=== PATIENT | female | born 1985 | race Caucasian/White ===

== ENCOUNTER 2021-07-05 10:55 | Outpatient (CLI) | payer BC ==
[2021-07-06 00:15] LABS: SARS-CoV-2 PCR by NAA Not Detected (NotDetected)
== END 2021-07-05 10:56 | disposition home or self-care (01) ==
LOC: CSHLAB 10:55
PROVIDERS: ATTEND Obstetrics & Gynecology
DX: Z20.822 Contact with and (suspected) exposure to COVID-19 (principal)
CPT/HCPCS: U0003; U0005

== ENCOUNTER 2021-07-08 05:41 | Inpatient (IN) | payer BC ==
[2021-07-08 06:08] VITALS: BMI 26.5
[2021-07-08] MEDS ORDERED: NS w/ Oxytocin 30 units 500 ML ONE (07:33)
[2021-07-08] MEDS ORDERED: Penicillin G Potassium 5 MILL.UNITS VIAL ONE (07:34)
[2021-07-08] MEDS ORDERED: Acetaminophen 500 MG TAB PO PRN (08:50)
[2021-07-08] MEDS ORDERED: Ondansetron PF 4 MG/2 ML Vial IVP PRN ×2 (08:50→10:24)
[2021-07-08] MEDS ORDERED: hydrALAZINE 20 MG/ML VIAL SLOW IVP PRN ×2 (08:50→18:32)
[2021-07-08] MEDS ORDERED: Promethazine HCl 25 MG/ML VIAL IM PRN ×2 (08:50→10:24)
[2021-07-08] MEDS ORDERED: Lidocaine 1% (PF) 30 ML VIAL SC PRN (08:50)
[2021-07-08] MEDS ORDERED: Lactated Ringer's 1,000 ML IV SCH (09:00)
[2021-07-08] MEDS ORDERED: NS w/ Oxytocin 30 units 500 ML IV SCH ×3 (09:00→18:32)
[2021-07-08] MEDS ORDERED: Penicillin G Potassium 5 MILL.UNITS in Sodium Chloride 0.9% 100 ML IVPB SCH (09:00)
[2021-07-08 09:46] LABS: Hemoglobin 11.1 g/dL (12.0-15.5); Mean Corpuscular HGB CONC 33.4 g/dL (32.0-36.0); Mean Corpuscular Hemoglobin 30.4 pg (27.0-33.0); Mean Platelet Volume 12.1 fl (7.4-10.4); Platelet Count 186 10x3/uL (150-450); RBC Distribution Width 13.2 % (11.5-14.5); Red Blood Cell (RBC) Count 3.65 10x6/uL (3.90-5.03); White Blood Cell (WBC) Count 8.6 10x3/uL (3.5-10.5)
[2021-07-08] MEDS ORDERED: Fentanyl 2 mcg/Bup 0.1% Cadd 100 ML ONE (09:46)
[2021-07-08 10:12] LABS: HIV (1/2) Antibody/Antigen Non-Reactive (NonReactive); HIV 1/2 INDEX 0.08 S/CO (<1.00); Hep B Surf Ag Non-Reactive S/CO (NonReactive); Syphilis Antibody Nonreactive (Nonreactive); Syphilis Antibody Index 0.06 S/CO (<1.00 Non-Reactive)
[2021-07-08] MEDS ORDERED: Hydrocerin (Eucerin) Cream 120 gm Jar TOP PRN (10:24)
[2021-07-08] MEDS ORDERED: Lactated Ringer's 500 ML IV PRN (10:24)
[2021-07-08] MEDS ORDERED: ePHEDrine Sulfate 50 MG/10 ML VIAL SLOW IVP PRN (10:24)
[2021-07-08] MEDS ORDERED: diphenhydrAMINE 50 MG/ML VIAL IVP PRN (10:24)
[2021-07-08] MEDS ORDERED: Acetaminophen 325 MG TAB PO PRN (10:24)
[2021-07-08] MEDS ORDERED: Naloxone HCl 0.4 mg/ml Vial IVP PRN ×2 (10:24)
[2021-07-08] MEDS ORDERED: Fentanyl 2 mcg/Bupivacaine 0.1% Cassette 100 ML EPIDURAL SCH (10:30)
[2021-07-08] MEDS ORDERED: Communication Order-Pharmacy FS SCH (10:30)
[2021-07-08 10:34] LABS: HBSAg Index 0.18 S/CO (0-0.99)
[2021-07-08] MEDS ORDERED: Penicillin G 2.5 MILL.units 2.5 MILL.UNITS in Premix Bag 1 BAG IVPB SCH (13:00)
[2021-07-08] MEDS ORDERED: Bisacodyl 10 MG SUPP PR PRN (18:32)
[2021-07-08] MEDS ORDERED: Benzocaine-Menthol 82.5 ML CAN TOP PRN (18:32)
[2021-07-08] MEDS ORDERED: Milk Of Magnesia 30 ML UDCUP PO PRN (18:32)
[2021-07-08] MEDS ORDERED: HYDROcodone/Acetaminophen 5/325 mg Tablet PO PRN (18:32)
[2021-07-08] MEDS ORDERED: Acetaminophen/Codeine 30-300mg Tablet PO PRN (18:32)
[2021-07-08] MEDS ORDERED: Boostrix 0.5 ML (Tdap) VIAL IM ONE (18:32)
[2021-07-08] MEDS ORDERED: Ondansetron PF 4 MG/2 ML Vial IVPB PRN (18:32)
[2021-07-08] MEDS ORDERED: Lanolin Ointment 7 GM TUBE TOP PRN (18:32)
[2021-07-08] MEDS ORDERED: Ferrous Sulfate 325 MG TAB PO SCH (21:00)
[2021-07-08] MEDS: Docusate Calcium (SURFAK) 240 MG CAP PO SCH (21:31)
[2021-07-08] MEDS: Ibuprofen 800 MG TAB PO SCH (21:31)
[2021-07-09] MEDS: Docusate Calcium (SURFAK) 240 MG CAP PO SCH ×2 (02:44→08:28)
[2021-07-09] MEDS: Ibuprofen 800 MG TAB PO SCH ×2 (02:44→14:20)
[2021-07-09 05:20] LABS: Hemoglobin 11.1 g/dL (12.0-15.5); Mean Corpuscular HGB CONC 33.2 g/dL (32.0-36.0); Mean Corpuscular Hemoglobin 30.6 pg (27.0-33.0); Platelet Count 186 10x3/uL (150-450); RBC Distribution Width 13.4 % (11.5-14.5); Red Blood Cell (RBC) Count 3.63 10x6/uL (3.90-5.03)
[2021-07-09] MEDS: Ferrous Sulfate 325 MG TAB PO SCH ×2 (08:27→17:18)
[2021-07-09] MEDS ORDERED: Prenatal Vitamin 1 TAB PO SCH (09:00)
[2021-07-09 11:32] VITALS: BP 108/62; TEMP 98
[2021-07-12 13:30] LABS: HBSAB Concentration 109.92 mIU/mL; Hep B Surf AB Reactive (NonReactive)
== END 2021-07-09 17:25 | disposition home or self-care (01) | DRG 807 ==
LOC: CSHLD 05:41 → CSHPP 18:25
PROVIDERS: ADMIT Obstetrics & Gynecology; ATTEND Obstetrics & Gynecology
PROC: 10E0XZZ Delivery of Products of Conception, External Approach (ICD-10-PCS; principal; 2021-07-08)
PROC: 10907ZC Drainage of Amniotic Fluid, Therapeutic from Products of Conception, Via Natural or Artificial Opening (ICD-10-PCS; 2021-07-08)
PROC: 3E033VJ Introduction of Other Hormone into Peripheral Vein, Percutaneous Approach (ICD-10-PCS; 2021-07-08)
DX: O80 Encounter for full-term uncomplicated delivery (principal); Z37.0 Single live birth; Z3A.39 39 weeks gestation of pregnancy
CPT/HCPCS: 36415; 51702; 85027; 86706; 86780; 86850; 86900; 86901; 87340; 87389; J2540; J3490; J7120; U0003; U0005

== ENCOUNTER 2023-01-05 06:15 | Inpatient (IN) | payer BC ==
[2023-01-05] MEDS ORDERED: Penicillin G Potassium 5 MILL.UNITS VIAL ONE (07:04)
[2023-01-05] MEDS ORDERED: hydrALAZINE 20 MG/ML VIAL SLOW IVP PRN (07:22)
[2023-01-05] MEDS ORDERED: Ondansetron PF 4 MG/2 ML Vial IVP PRN ×2 (07:22→10:34)
[2023-01-05] MEDS ORDERED: Lidocaine 1% (PF) 30 ML VIAL SC PRN (07:22)
[2023-01-05] MEDS ORDERED: HYDROcodone/Acetaminophen 5/325 mg Tablet PO PRN ×2 (07:22)
[2023-01-05] MEDS ORDERED: Ibuprofen 800 MG TAB PO PRN (07:22)
[2023-01-05] MEDS ORDERED: Promethazine HCl 25 MG/ML VIAL IM PRN ×2 (07:22→10:34)
[2023-01-05] MEDS ORDERED: Penicillin G Potassium 5 MILL.UNITS in Sodium Chloride 0.9% 100 ML IVPB SCH (07:30)
[2023-01-05] MEDS ORDERED: NS w/ Oxytocin 30 units 500 ML IV SCH ×2 (07:30)
[2023-01-05 07:50] VITALS: BMI 25.7
[2023-01-05] MEDS ORDERED: Bupivacaine 0.25% HCL 30 ML VIAL ONE (08:00)
[2023-01-05] MEDS: Lactated Ringer's 1,000 ML IV SCH ×3 (08:15→19:08)
[2023-01-05 08:19] LABS: Hemoglobin 11.7 g/dL (12.0-15.5); Mean Corpuscular HGB CONC 33.1 g/dL (32.0-36.0); Mean Corpuscular Volume 87.8 fl (81.6-98.3); Mean Platelet Volume 12.1 fl (7.4-10.4); Platelet Count 241 10x3/uL (150-450); RBC Distribution Width 13.1 % (11.5-14.5); Red Blood Cell (RBC) Count 4.03 10x6/uL (3.90-5.03)
[2023-01-05 08:47] LABS: HBSAg Index 0.13 S/CO (0-0.99); Hep B Surf Ag - L&D Non-Reactive S/CO (NonReactive)
[2023-01-05 08:48] LABS: Syphilis Antibody Nonreactive (Nonreactive); Syphilis Antibody Index 0.04 S/CO (<1.00 Non-Reactive)
[2023-01-05] MEDS ORDERED: fentaNYL/Ropivacaine Epidural 100 ML ONE (10:08)
[2023-01-05] MEDS ORDERED: ePHEDrine Sulfate 50 MG/10 ML VIAL SLOW IVP PRN (10:34)
[2023-01-05] MEDS ORDERED: Moisturizing Cream (Eucerin) 113 GM JAR TOP PRN (10:34)
[2023-01-05] MEDS ORDERED: Naloxone HCl 0.4 mg/ml Vial IVP PRN ×2 (10:34)
[2023-01-05] MEDS ORDERED: Acetaminophen 325 MG TAB PO PRN (10:34)
[2023-01-05] MEDS ORDERED: diphenhydrAMINE 50 MG/ML VIAL IVP PRN (10:34)
[2023-01-05] MEDS ORDERED: Lactated Ringer's 500 ML IV PRN (10:34)
[2023-01-05] MEDS ORDERED: Communication Order-Pharmacy FS SCH (10:45)
[2023-01-05] MEDS: Penicillin G 2.5 MILL.units 2.5 MILL.UNITS in Premix Bag 1 BAG IVPB SCH ×3 (11:05→19:07)
[2023-01-05] MEDS: fentaNYL 2 mcg/Ropivacaine 0.2% Epidural 100 ML CADD EPIDURAL SCH ×2 (15:04→19:08)
[2023-01-05] MEDS ORDERED: Misoprostol 200 MCG TAB ONE (22:06)
[2023-01-05] MEDS ORDERED: Methylergonovine 0.2 MG/ML VIAL ONE (22:06)
[2023-01-05] MEDS ORDERED: Carboprost 250 MCG/ML AMP ONE (22:06)
[2023-01-06] MEDS ORDERED: Methylergonovine 0.2 MG/ML VIAL IM PRN (02:08)
[2023-01-06] MEDS ORDERED: HYDROcodone/Acetaminophen 5/325 mg Tablet PO PRN ×2 (02:08)
[2023-01-06] MEDS ORDERED: Boostrix 0.5 ML (Tdap) VIAL (>/=7 yrs of age) IM ONE (02:08)
[2023-01-06] MEDS ORDERED: Milk Of Magnesia 30 ML UDCUP PO PRN (02:08)
[2023-01-06] MEDS ORDERED: hydrALAZINE 20 MG/ML VIAL SLOW IVP PRN (02:08)
[2023-01-06] MEDS ORDERED: Bisacodyl 10 MG SUPP PR PRN (02:08)
[2023-01-06] MEDS ORDERED: Benzocaine-Menthol 82.5 ML CAN TOP PRN (02:08)
[2023-01-06] MEDS ORDERED: Lanolin Ointment 7 GM TUBE TOP PRN (02:08)
[2023-01-06] MEDS: Penicillin G 2.5 MILL.units 2.5 MILL.UNITS in Premix Bag 1 BAG IVPB SCH (02:11)
[2023-01-06] MEDS ORDERED: NS w/ Oxytocin 30 units 500 ML IV SCH (03:00)
[2023-01-06] MEDS: Ibuprofen 800 MG TAB PO SCH ×3 (06:05→21:17)
[2023-01-06] MEDS ORDERED: Prenatal Vitamin 1 TAB PO SCH (09:00)
[2023-01-06] MEDS: Docusate 100 MG CAP PO SCH ×2 (09:25→21:16)
[2023-01-06] MEDS: Ferrous Sulfate 325 MG TAB PO SCH ×2 (09:25→18:26)
[2023-01-06 23:23] VITALS: BP 113/63; TEMP 98.1
== END 2023-01-07 01:05 | disposition home or self-care (01) | DRG 807 ==
LOC: CSHLD 06:15 → CSHPP 01-06 01:55
PROVIDERS: ADMIT Obstetrics & Gynecology; ATTEND Obstetrics & Gynecology
PROC: 10E0XZZ Delivery of Products of Conception, External Approach (ICD-10-PCS; principal; 2023-01-06)
DX: O99.824 Streptococcus B carrier state complicating childbirth (principal); Z37.0 Single live birth; Z3A.39 39 weeks gestation of pregnancy
CPT/HCPCS: 51702; 85027; 86780; 86850; 86900; 86901; 87340; J2540; J2590; J3490; J7120; S0020